=== PATIENT | female | born 1990 | race Caucasian/White ===

== ENCOUNTER 2018-10-08 16:19 | Emergency (ER) | payer SELFPAY ==
[2018-10-08 16:23] VITALS: BP 128/63; PULSE 114; BMI 33.3
--- NOTE | 2018-10-08 16:27 | PDOC ---
Rapid Medical Evaluation Chief Complaint: Respiratory Time Seen by Provider: 10/08/18 16:21 Medical Evaluation: Allergies Allergy/AdvReac Type Severity Reaction Status Date / Time No Known Allergies Allergy Verified 05/05/15 18:15 10/08/18 16:21 I have performed a brief in-person evaluation of this patient. The patient presents with a chief complaint of:cough w/ body aches, MCCLURE and fever x 2 days Pertinent physical exam findings:febrile and tachy I have ordered the following:tylenol The patient will proceed to the ED for further evaluation. 10/08/18 16:31 Discharge Disposition - Diagnosis Viral syndrome - Referrals - Patient Instructions - Post Discharge Activity
[2018-10-08] MEDS ORDERED: ACETAMINOPHEN 325 MG TABLET (FP) PO ONE (16:31)
[2018-10-08] MEDS ORDERED: ACETAMINOPHEN 325 MG TABLET (FP) ONE (16:50)
--- NOTE | 2018-10-08 17:00 | PDOC ---
History of Present Illness - General Chief Complaint: Respiratory Stated Complaint: COLD SYMPTOMS Time Seen by Provider: 10/08/18 16:21 History Source: Patient Exam Limitations: Clinical Condition - History of Present Illness Initial Comments: 10/08/18 17:12 Patient with no significant past medical history present with complaint of persistent cough with yellow sputum, nasal congestion, runny nose and body aches with fever since this afternoon. Patient reported mother on home had fever 2 days ago and mother is a heavy smoker. Patient reported taking wheezing is prior to ED visit which had Tylenol. Denies sore throat, nausea, vomiting, abdominal pain, diarrhea or constipation. Denies urinary frequency, dysuria or burning with urination. Denies recent travel Timing/Duration: 4-6 hours Past History - Past Medical History Allergies/Adverse Reactions: Allergies Allergy/AdvReac Type Severity Reaction Status Date / Time No Known Allergies Allergy Verified 10/08/18 16:23 Home Medications: Ambulatory Orders Phenazopyridine HCl [Pyridium] 200 mg PO TID #5 tablet 04/11/11 Sulfamethoxazole/Trimethoprim [Bactrim Ds Tablet] 1 each PO BID #9 tablet Ipratropium Renwick 2 spray NS BID PRN 5 Days #1 spray 10/08/18 Montelukast Na [Singulair -] 10 mg PO HS #7 tablet 10/08/18 Cardiac Disorders: Yes (palpitations) COPD: No - Suicide/Smoking/Psychosocial Hx Smoking Status: No Smoking History: Never smoked Number of Cigarettes Smoked Daily: 0 Hx Alcohol Use: Yes (OCCASIONALLY) Drug/Substance Use Hx: No Review of Systems - Review of Systems Able to Perform ROS?: Yes Is the patient limited Romansh proficient: No Constitutional: Yes: Chills, Fever, Malaise HEENTM: Yes: Symptoms Reported, See HPI, Nose Congestion. No: Eye Pain, Blurred Vision, Tearing, Recent change in vision, Double Vision, Cataracts, Ear Pain, Ocular Prothesis, Ear Discharge, Nose Pain, Tinnitus, Nose Bleeding, Hearing Loss, Throat Pain, Throat Swelling, Mouth Pain, Dental Problems, Difficulty Swallowing, Mouth Swelling, Other Respiratory: Yes: Symptoms reported, See HPI, Cough, Productive cough (yellow sputum). No: Orthopnea, Shortness of Breath, SOB with Exertion, SOB at Rest, Stridor, Wheezing, Hemoptysis, Other Cardiac (ROS): No: Symptoms Reported, See HPI, Chest Pain, Edema, Irregular Heart Rate, Lightheadedness, Palpitations, Syncope, Chest Tightness, Other ABD/GI: No: Symptoms Reported, Nausea, Vomiting, Abdominal cramping : No: Symptoms Reported, Burning, Dysuria, Discharge, Frequency, Flank Pain, Urgency Musculoskeletal: No: Symptoms Reported Integumentary: No: Symptoms Reported Neurological: Yes: Symptoms reported, See HPI, Headache. No: Weakness, Unsteady Gait, Ataxia, Dizziness All Other Systems: Reviewed and Negative *Physical Exam - Vital Signs Last Vital Signs Temp Pulse Resp BP Pulse Ox 102.8 F H 114 H 18 128/63 99 10/08/18 16:21 10/08/18 16:21 10/08/18 16:21 10/08/18 16:21 10/08/18 16:21 - Physical Exam Comments: 10/08/18 16:59 GENERAL: Well developed, well nourished. Awake and alert. No acute distress. HEENT: Normocephalic, atraumatic. PERRLA, EOMI. No conjunctival pallor. Sclera are non-icteric. Moist mucous membranes. Oropharynx is clear. NECK: Supple. Full ROM. CARDIOVASCULAR: Regular rate and rhythm. No murmurs, rubs, or gallops. Distal pulses are 2+ and symmetric. PULMONARY: No evidence of respiratory distress. Lungs clear to auscultation bilaterally. No wheezing, rales or rhonchi. ABDOMINAL: Soft. Non-tender. Non-distended. No rebound or guarding. No organomegaly. Normoactive bowel sounds. MUSCULOSKELETAL Normal range of motion at all joints. EXTREMITIES: No cyanosis. SKIN: Warm and dry. Normal capillary refill. No rashes. NEUROLOGICAL: Alert, awake, appropriate. Gait is normal without ataxia. PSYCHIATRIC: Cooperative. Good eye contact. Appropriate mood General Appearance: Yes: Nourished, Appropriately Dressed. No: Apparent Distress ED Treatment Course - RADIOLOGY Radiology Studies Ordered: Category Date Time Status CHEST PA & LAT [RAD] Stat Radiology 10/08/18 16:56 Ordered - Medications Given in the ED: ED Medications Discontinued Medications Generic Name Dose Route Start Last Admin Trade Name Freq PRN Reason Stop Dose Admin Acetaminophen 650 mg 10/08/18 16:31 10/08/18 16:51 Tylenol - PO 10/08/18 16:32 650 mg ONCE ONE Administration Medical Decision Making - Medical Decision Making 10/08/18 17:14 Patient with no significant past medical history present with complaint of persistent cough with yellow sputum, nasal congestion, runny nose and body aches with fever since this afternoon. Patient reported mother on home had fever 2 days ago and mother is a heavy smoker. Patient reported taking wheezing is prior to ED visit which had Tylenol. Denies sore throat, nausea, vomiting, abdominal pain, diarrhea or constipation. Denies urinary frequency, dysuria or burning with urination. Denies recent travel Exam significant for fever 102.8F. Lungs clear to auscultation bilateral. Normal cardio exam. No pharyngeal erythema. No abdominal tenderness. Symptoms likely viral URI versus less likely pneumonia. Tylenol 650 mg by mouth ordered for fever. Decadron 10 mg by mouth ordered for cough and malaise. Chest x-ray ordered to rule out pneumonia 10/08/18 17:33 CXR shows no no acute infiltrate or PNA. Patient symptoms likely viral syndrome and stable for outpatient management . Patient wishes to continue home mucinex for cough. Advised to increase fluid intake and alternate between motrin and Tylenol as needed for fever. Repeat temp prior to discharge is 100.1F *DC/Admit/Observation/Transfer Diagnosis at time of Disposition: Viral syndrome Fever Qualifiers: Fever type: due to other condition Qualified Code(s): R50.81 - Fever presenting with conditions classified elsewhere - Discharge Dispostion Disposition: HOME Condition at time of disposition: Stable Decision to Admit order: No - Prescriptions Prescriptions: Ipratropium Renwick 2 spray NS BID PRN 5 Days #1 spray PRN Reason: nasal congestion Montelukast Na [Singulair -] 10 mg PO HS #7 tablet - Referrals - Patient Instructions Printed Discharge Instructions: DI for Viral Upper Respiratory Infection -- Adult Additional Instructions: Your chest x-ray shows no pneumonia. Your symptoms likely from viral infection. Take home medications as discussed. Take new medications. Increase fluid intake. Alternate between Tylenol and Motrin as needed for fever as discussed. Rest. Follow-up with primary care needed - Post Discharge Activity Forms/Work/School Notes: Back to Work
[2018-10-08] MEDS ORDERED: DEXAMETHASONE LIQUID 0.5 MG/5 ML PO ONE (17:11)
[2018-10-08] MEDS ORDERED: DEXAMETHASONE SOD PHOSPHATE 10 MG/1 ML VIAL ONE (17:15)
[2018-10-08 17:25] VITALS: TEMP 100.1
== END 2018-10-08 17:54 | disposition home or self-care (01) ==
LOC: JERFT 16:19
DX: R50.81 Fever presenting with conditions classified elsewhere (principal); B97.89 Other viral agents as the cause of diseases classified elsewhere
CPT/HCPCS: 71046-TC-FY; 99281-25

== ENCOUNTER → 2023-06-18 | Day surgery (SDC) | payer OTHER | END | disposition home or self-care (01) | LOC: JRADUS-SUR 09:25 | PROVIDERS: ATTEND Obstetrics & Gynecology | PROC: BU18YZZ Fluoroscopy of Uterus and Fallopian Tubes using Other Contrast (ICD-10-PCS; principal; 2023-06-18) | DX: N97.9 Female infertility, unspecified (principal) | CPT/HCPCS: 58340; 74740-TC-FY; 76000-TC-FY; 84703 ==